=== PATIENT | male | born 1975 | race Caucasian/White ===

== ENCOUNTER 2018-08-08 21:02 | Emergency (ER) | payer OTHER ==
[~2018-08-08] VITALS: Ht 170.2 cm; Wt 95.3 kg
[2018-08-08 21:17] VITALS: Ht 170.2 cm; Wt 95.3 kg
[2018-08-08 23:34] VITALS: BP 126/82
== END 2018-08-08 23:34 | disposition home or self-care (01) ==
LOC: ED 21:02
DX: L02.412 Cutaneous abscess of left axilla (principal); R03.0 Elevated blood-pressure reading, without diagnosis of hypertension
CPT/HCPCS: J0696; Q0162